=== PATIENT | female | born 1990 | race Caucasian/White ===

== ENCOUNTER → 2021-01-17 09:56 | Outpatient (CLI) | payer OTHER, SELFPAY ==
--- NOTE | ~2021-01-17 | US_ITS ---
EXAMINATION: US OB <= 14 weeks fetus DATE: 01/17/2021 10:20 INDICATION: Miscarriage. Low-grade fever. Evaluate for retained products of conception. Comparison:No prior studies for comparison. TECHNIQUE: Multiple transabdominal sonographic images of the pelvis performed. FINDINGS: The uterus measures 8.5 x 5.3 x 6.5 cm. The endometrial complex measures 1.2 cm. The right ovary measures 3.3 x 1.8 x 3.4 cm and the left ovary measures 2 x 2.6 x 1.2 cm. There are small follicles in each ovary. Normal doppler signal in both ovaries. There is no free fluid in the pelvis. There are no abnormal masses seen on either side. IMPRESSION: 1. Mildly thickened endometrium measuring 12 mm. Reviewed, dictated and finalized at location B.
== END ==
DX: O36.80X0 Pregnancy with inconclusive fetal viability, not applicable or unspecified (principal); Z3A.00 Weeks of gestation of pregnancy not specified
CPT/HCPCS: 76801

== ENCOUNTER → 2021-09-11 11:55 | Outpatient (CLI) | payer BC, SELFPAY ==
--- NOTE | ~2021-09-11 | US_ITS ---
EXAMINATION: US OB <= 14 weeks fetus DATE: 09/11/2021 12:23 INDICATION: Assess viability during first trimester with prior recurrent lo ss TECHNIQUE: Real-time pelvic ultrasound utilizing transabdominal probe was performed. The interprethien barragan radiologist was not present for the study. COMPARISON: None. FINDINGS: The uterus measures 8.4 x 6.4 x 7.0 cm. There is an intrauterine gestational sac. A yolk sac and fet al pole are identified. The crown rump length measures 2.5 cm, which correlates with an estimated ges tational age of 9 weeks and 1 days. heart motion is identified measuring 180 beats per minute ( bpm) by M-mode Doppler. 1.3 x 0.8 x 1.7 similar anechoic subchorionic hematoma along the inferior mar gin of the gestational sac. The right ovary measures 2.9 x 1.9 x 2.5 cm. The left ovary measures 2.5 x 3.3 x 2.6 cm. 2.2 cm corpu s luteum cyst at the left ovary. There is no free fluid in the pelvis. IMPRESSION: 1. Single living fetus with heart rate of 180 bpm. 2. Gestational age by ultrasound of 9 weeks 1 day(s) +/- 6 day(s) with ultrasound estimated date of delivery ([facility]) of 04/15/2022. 2. Small subchorionic hematoma. Reviewed, dictated and finalized at location A. 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 Single living fetus with heart rate of 180 bpm. 2. Gestational age by ultrasound of 9 weeks 1 day(s) +/- 6 day(s) with ultraso und estimated date of delivery ([facility]) of 04/15/2022. 2. Small subchorionic hematoma.
== END ==
PROVIDERS: Visit Provider Obstetrics & Gynecology
DX: O20.9 Hemorrhage in early pregnancy, unspecified (principal); Z3A.01 Less than 8 weeks gestation of pregnancy
CPT/HCPCS: 76801

== ENCOUNTER 2024-01-13 00:38 | Emergency (ER) | payer OTHER, SELFPAY ==
--- NOTE | ~2024-01-13 | XR_ITS ---
EXAMINATION: XR chest 2V DATE: 01/13/2024 01:05 INDICATION: Epigastric abdominal pain. TECHNIQUE: Frontal and lateral views of the chest were obtained. COMPARISON: None. FINDINGS: There is no pneumonia, pleural effusion, or pneumothorax. The heart size is normal. IMPRESSION: 1. No acute cardiopulmonary disease. Reviewed, dictated and finalized at location E.
--- NOTE | 2024-01-13 00:40 | ECG_ITS ---
Measurements Intervals [place] Rate: 72 P: 15 SD: 144 QRS: 28 QRSD: 95 T: 12 QT: 371 QTc: 407 Interpretive Statements SINUS RHYTHM LOW QRS VOLTAGE IN PRECORDIAL LEADS BORDERLINE ECG NO PREVIOUS ECG AVAILABLE FOR COMPARISON Electronically Signed On 01-13-2024 16:01:11 CDT by Josh Kyle D.O.
[2024-01-13 00:42] VITALS: BP 128/86; PULSE 76; RESP 18; TEMP 36.9; O2SAT 100
[2024-01-13 00:57] LABS: Basophils Percent Auto 0.5 % (0.2-1.2); Eosinophils Absolute Auto 0.2 K/mm3 (0-0.3); Eosinophils Percent Auto 2.4 % (0-4.4); Hematocrit 39.9 % (37.0-47.0); Hemoglobin 12.9 g/dL (12.0-15.0); Immature Granulocyte Absolute 0.02 K/mm3 (0.00-0.031); Immature Granulocyte Percent A 0.2 % (0-0.5); Lymphocytes Absolute Auto 1.57 K/mm3 (0.9-3.2); Lymphocytes Percent Auto 18.3 % (18.3-44.2); Mean Corpuscular HGB Conc 32.3 g/dl (32-36); Mean Corpuscular Hemoglobin 27.4 pg (26-34); Mean Corpuscular Volume 84.7 fl (80-100); Mean Platelet Volume 10.7 fl (7.4-10.4); Monocytes Absolute Auto 0.5 K/mm3 (0.1-0.6); Monocytes Percent Auto 5.4 % (2.6-8.5); Neutrophils Absolute Auto 6.3 K/mm3 (1.3-6.7); Neutrophils Percent Auto 73.2 % (45.5-73.1); Platelet Count Result 195 k/mm3 (150-375); Red Blood Count 4.71 M/mm3 (4.2-5.4); Red Cell Distribution Width 13.2 % (11.5-14.5); White Blood Count 8.6 K/mm3 (4.5-10.0)
[2024-01-13 01:07] LABS: Prothrombin Time 13.4 Seconds (11.1-14.7)
[2024-01-13 01:08] LABS: Partial Thromboplastin Time 29.9 Seconds (22.3-36.8)
[2024-01-13 01:10] LABS: Alanine Aminotransferase 45 U/L (6-35); Albumin Level 4.3 g/dL (3.5-5.1); Alkaline Phosphatase 56 U/L (38-126); Anion Gap 4 mmol/L (8-16); Aspartate Amino Transferase 38 U/L (14-36); Bilirubin,Total 0.4 mg/dL (0.2-1.3); Blood Urea Nitrogen 14 mg/dL (7-17); Calcium 8.8 mg/dL (8.4-10.2); Carbon Dioxide 27 mmol/L (22-30); Chloride 106 mmol/L (98-107); Estimated CRCL calculation 94 ml/min; Estimated Glomerular Filt Rate > 60; Glucose 110 mg/dL (65-110); Lipase 70 U/L (23-300); Potassium 3.7 mmol/L (3.4-5.0); Sodium 137 mmol/L (137-145)
[2024-01-13 01:21] LABS: Troponin I < 0.012 ng/mL (0.000-0.034)
[2024-01-13 02:13] VITALS: BP 107/64; PULSE 77; RESP 18; O2SAT 100
[2024-01-13 02:14] VITALS: BP 107/64; PULSE 71; RESP 15; TEMP 36.9; O2SAT 100
[2024-01-13 02:16] VITALS: BP 106/60; PULSE 76; RESP 16; O2SAT 100
--- NOTE | 2024-01-13 02:22 | ED.CHESTPAIN ---
HPI - Chest Pain General Chief Complaint: Chest Pain Stated Complaint: chest pain Time Seen by Provider: 01/13/24 02:21 History of Present Illness HPI narrative: Patient is a 33-year-old female who presents emergency department this evening complaining of mid epigastric pain radiating to her back approximately 3 hours ago. Patient admits that she has had similar symptoms in the past, however, her last similar pain was approximately 5 months ago. Patient admits that the pain is usually at night the few hours after she ate supper. She denies any history of gallstones and denies any previous abdominal surgeries. Patient admits to mild nausea which is intermittent but denies any vomiting episodes. She denies any chest pain, shortness of breath or any lower abdominal pain any urinary symptoms dysuria hematuria and patient agree. Patient also denies any fevers or chills. There are no other modifying alleviating, or precipitating factors at this time. Related Data Allergies Allergy/AdvReac Type Severity Reaction Status Date / Time Penicillins Allergy Hives Verified 01/13/24 00:45 Exam Narrative: General: Alert, awake, afebrile, in no acute distress. HEENT: PERRL, no rhinorrhea, no post nasal drip, oropharynx clear. Neck: Trachea midline, no JVD, no lymphadenopathy. Cardiovascular: Regular rate and rhythm, no murmurs, rubs or gallops, no peripheral edema. Respiratory: Clear to auscultation bilaterally, no tachypnea, no wheezing, no rhonchi, no rubs, no respiratory distress. Abdomen: Soft, nontender, negative Cali sign, nondistended, no rebound, no guarding, no peritoneal signs. Musculoskeletal: No joint swelling or deformity, normal muscle tone. Skin: No rashes or petechia, no signs of infection. Psychiatric: Alert and oriented, normal behavior and judgment for situation. Neurological: Alert and oriented to person, place, and time. Follows all commands. No focal deficits, speech is clear and fluent. Course Vital Signs Vital signs: Vital Signs Temperature 98.5 F 01/13/24 00:42 Pulse Rate 76 01/13/24 00:42 Respiratory Rate 18 01/13/24 00:42 Blood Pressure 128/86 01/13/24 00:42 Pulse Oximetry 100 01/13/24 00:42 Oxygen Delivery Room Air 01/13/24 00:42 Temperature 98.5 F 01/13/24 02:14 Pulse Rate 68 01/13/24 04:03 Respiratory Rate 17 01/13/24 04:03 Blood Pressure 135/93 H 01/13/24 04:03 Pulse Oximetry 99 01/13/24 04:03 Oxygen Delivery Room Air 01/13/24 04:01 MDM - Chest Pain MDM Narrative Medical decision making narrative: The patient was evaluated by myself in the emergency department. History is obtained from patient who is an independent historian and physical exam was performed. External medical records were reviewed at this time. IV was established and pertinent tests were ordered. Patient was administered 4 mg of oral Zofran and for oral Protonix. EKG was obtained which revealed sinus rhythm rate of 72 beats [address] min[address] No ST changes, T wave inversions or evidence of acute ischemia. EKG was independently interpreted by me and is currently pending official cardiology read. Laboratory results obtained revealing mild elevation in her liver enzymes with an AST of 38 and an ALT of 45. At this time, I did inform the patient that ideally I would like to order an ultrasound of her gallbladder, however, coronal time of day, we currently do not have ultrasound in our department. Did discuss obtaining CT abdomen and pelvis with her at this time, however, patient states that she would rather start with an ultrasound 1st. Patient was scheduled for an outpatient ultrasound at 7:30 a.m. her imaging center on January 13. Differential diagnosis considerations include acute cholecystitis, pancreatitis, gastroenteritis and GERD. Comorbidities impacting this visit include none. I have evaluated and discussed social determinants of health with the patient that could potentially impact sub
--- NOTE | 2024-01-13 02:32 | PC.NURSE ---
Pt reports all symptoms resolved not long after arrival. Will hold on meds/IV until provider assessment.
[2024-01-13 03:15] VITALS: PULSE 73; RESP 19; O2SAT 99
[2024-01-13 04:03] VITALS: BP 135/93; PULSE 68; RESP 17; O2SAT 99
[2024-01-13] MEDS: PANTOPRAZOLE 40 MG TABLET PO (04:09)
[2024-01-13] MEDS: ONDANSETRON HCL ODT 4 MG TABLET PO (04:09)
== END 2024-01-13 04:24 | disposition home or self-care (01) ==
PROVIDERS: Emergency Provider Emergency Medicine
DX: R07.9 Chest pain, unspecified (principal)
CPT/HCPCS: 36415; 71046; 80053; 83690; 84484; 85025; 85610; 85730; 93005; 99284; A9270

== ENCOUNTER 2024-01-14 08:13 | Outpatient (CLI) | payer OTHER, SELFPAY ==
--- NOTE | ~2024-01-14 | US_ITS ---
EXAMINATION: US right upper quadrant DATE: 01/14/2024 INDICATION: Epigastric abdominal pain. TECHNIQUE: Multiple grayscale and Doppler ultrasound images of the abdomen were obtained. COMPARISON: None FINDINGS: The visualized portions of the head and body of the pancreas are normal. There is diffuse h epatic steatosis. There is normal flow in main portal vein. The gallbladder is normal in size and con tains gallstones. No gallbladder wall thickening or sonographic Cali sign. The common duct is jonn l and measures 4 mm. IMPRESSION: 1. Diffuse hepatic steatosis. 2. Cholelithiasis. No evidence of acute cholecystitis. Reviewed, dictated and finalized at location A.
== END 2024-01-14 08:14 | disposition home or self-care (01) ==
PROVIDERS: PCP Surgery; Visit Provider Emergency Medicine
DX: K80.20 Calculus of gallbladder without cholecystitis without obstruction (principal); K76.0 Fatty (change of) liver, not elsewhere classified
CPT/HCPCS: 76705

== ENCOUNTER 2024-02-20 12:43 | Emergency (ER) | payer OTHER, SELFPAY ==
--- NOTE | ~2024-02-20 | XR_ITS ---
XR foot RT min 3V 02/20/2024 13:23 INDICATION: Right foot pain PROCEDURE: 4 views right foot COMPARISON: No prior studies for comparison. FINDINGS: Fracture, dislocation or subluxation is not identified. Lisfranc joint intact. The soft tis sues appear within normal limits. No foreign bodies are identified. IMPRESSION: 1: NO ACUTE BONE OR JOINT ABNORMALITY IDENTIFIED. Reviewed, dictated and finalized at location B.
[2024-02-20 13:04] VITALS: BP 94/51; PULSE 89; RESP 16; TEMP 36.6; O2SAT 100
--- NOTE | 2024-02-20 13:49 | ED.LOWEXIN ---
HPI - Extremity Injury (Lower) General Chief Complaint: Extremity Injury, Lower Stated Complaint: Injured Foot Time Seen by Provider: 02/20/24 13:49 Source: patient Mode of arrival: ambulatory Limitations: no limitations History of Present Illness HPI Narrative: 34 yo F presents wtih pain to R foot for 2 wks. Was coming down ladder carrying a bin from storage and couldnt see last step and where to put foot down. Came down hard onto R foot but did not fall. Pain to plantar and dorsal aspect R foot. Has been elevating and resting and still has pain. Wants to rule out fracture. All systems reviewed and negative except as noted above. Related Data Home Medications Medication Instructions Recorded Confirmed fluoxetine 10 mg capsule (Prozac) 10 mg PO DAILY 01/15/24 02/20/24 Allergies Allergy/AdvReac Type Severity Reaction Status Date / Time Penicillins Allergy Hives Verified 02/20/24 13:01 Review of Systems Review of Systems: CONSTITUTIONAL: Denies fever, chills, or sweats. EYES: Denies visual changes, redness, or discharge. ENT: Denies rhinorrhea, congestion, sore throat, or otalgia. CARDIOVASCULAR: Denies chest pain, palpitations, or edema. RESPIRATORY: Denies cough or dyspnea. GASTROINTESTINAL: Denies abdominal pain, nausea, vomiting, or diarrhea. GENITOURINARY: Denies dysuria or hematuria. SKIN: Denies rash or itching. MUSCULOSKELETAL: Denies back pain, joint pain, or myalgia. Reports pain to right foot. NEUROLOGIC: Denies headache, numbness, or weakness. PSYCHIATRIC: Denies anxiety or depression. All other systems reviewed are negative, except as documented in HPI. [facility] Past Medical History Medical History Depression Surgical History Surgical History H/O laparoscopy History of D&C History of eyelid surgery Family History Family History (Updated 01/19/24 @ 08:59 by Elizabeth Lombardi MA) Other Cancer Diabetes mellitus Heart disease Hypertension Social History Social History Smoking status: Never smoker Alcohol intake: current Drinks per week: 1 Alcohol use details: socially Substance use type: marijuana Other substance usage details: Vape marijuana maybe once a week. 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 There is no relevant family history pertinent to the presenting complaint. Exam Narrative: GENERAL: This is a well-nourished, well-developed patient, in no apparent distress. HEAD: normocephalic, atraumatic. EYES: PERRL. Sclera clear/white. Vision is grossly intact. EARS: External ears normal NOSE: External nose normal NECK: Neck supple, non-tender without lymphadenopathy, masses or thyromegaly. CARDIOVASCULAR: Regular rate and rhythm without murmurs, gallops, or rubs. RESPIRATORY: Clear to auscultation. Breath sounds equal bilaterally. No wheezes, rales, or rhonchi. SKIN: warm, Dry, intact with no suspicious lesions or rash, good texture and turgor. NEURO: awake, alert, and oriented to person, place and time. There were no obvious focal neurologic abnormalities. EXTREMITIES: pain to distal aspect 3rd and 4th metatarsal on palpation. no swelling or bruising. no deformity. Course Course Level of Care: Express Care Visit Vital Signs Vital signs: Vital Signs Temperature 36.6 C 02/20/24 13:04 Pulse Rate 89 02/20/24 13:04 Respiratory Rate 16 02/20/24 13:04 Blood Pressure 94/51 L 02/20/24 13:04 Pulse Oximetry 100 02/20/24 13:04 Temperature 36.6 C 02/20/24 13:04 Pulse Rate 89 02/20/24 13:04 Respiratory Rate 16 02/20/24 13:04 Blood Pressure 94/5
== END 2024-02-20 14:04 | disposition home or self-care (01) ==
PROVIDERS: Emergency Provider Nurse Practitioner Family
DX: S90.31XA Contusion of right foot, initial encounter (principal); X50.9XXA Other and unspecified overexertion or strenuous movements or postures, initial encounter; F32.A Depression, unspecified; F12.90 Cannabis use, unspecified, uncomplicated
CPT/HCPCS: 73630; 99213; G0463

== ENCOUNTER 2024-02-23 11:33 | Outpatient (CLI) | payer OTHER, SELFPAY ==
[2024-02-23 12:36] LABS: Alanine Aminotransferase 33 U/L (6-35); Albumin Level 4.5 g/dL (3.5-5.1); Alkaline Phosphatase 54 U/L (38-126); Amylase 69 U/L (30-110); Aspartate Amino Transferase 32 U/L (14-36); Bilirubin,Total 0.4 mg/dL (0.2-1.3); Lipase 69 U/L (23-300)
== END 2024-02-23 11:34 | disposition home or self-care (01) ==
LOC: ANHSURGERY 11:38
PROVIDERS: Visit Provider Surgery
DX: Z01.818 Encounter for other preprocedural examination (principal); K80.10 Calculus of gallbladder with chronic cholecystitis without obstruction
CPT/HCPCS: 36415; 80076; 82150; 83690

== ENCOUNTER 2024-02-25 01:12 | Day surgery (SDC) | payer OTHER, SELFPAY ==
[2024-02-19 09:13] VITALS: BMI 31.4
--- NOTE | 2024-02-19 09:21 | PC.NURSE ---
Report to the Outpatient Waiting Room, entrance under the green pavilion located off [facility], at time _0800_ on date _[id number]_. Planned Procedure Time: _1000_. Time changes happen often and if your time is changed the preop area will call you the afternoon before. - You and your visitor will be asked to self-screen and do not enter if you have any COVID symptoms. - A mask is optional within the hospital at this time. Patients may have clear liquids (water, carbonated beverages, clear teas, apple juice) until 3 hours prior to surgery with a maximum of 20 ounces. - No food from midnight until time of surgery Take the following medications with a SIP of water the morning of surgery: ____Fluoxetine DO NOT STOP ANY OF YOUR OTHER PRESCRIPTION MEDICATIONS PRIOR TO SURGERY ?EXCEPT THE FOLLOWING Medications to discontinue per physician None Date to take last dose Please no make-up, nail bengali, hairspray, perfume, deodorant, or body powder the day of surgery. No jewelry (including any body piercings) or valuables the day of surgery, leave them at home. Please take a shower or bath the night before, or the morning of, surgery with an antibacterial soap. Wear comfortable, loose fitting clothing. - Jewelry must be removed prior to entering the operating room. Rings and piercings that are not removed may be cut off. - The hospital will not accept responsibility for valuables. - Please leave all valuables, including medications, at home the day of surgery. If you are going home after surgery, a licensed jinrikisha driver must drive you home. - NO public transportation without another adult if you receive anesthesia. - We recommend that an adult stay with you for 24 hours following discharge. - We also recommend that you do not drive, make important decision, drink alcoholic beverages, or take any drugs that were not prescribed by your health care provider for at least 24 hours after your discharge time. Follow any additional instructions given to you from your surgeon. If you or anyone in your household have experienced Covid symptoms in the past week, please notify your surgeon or the nurse liaison at the phone number below for possible testing. Telephone instructions given to __Leonor___and asked if any additional questions and then verbalized understanding. Patient advised to call surgeon office or pre surgery nurse liaison [phone] if any additional questions.
--- NOTE | 2024-02-23 16:36 | PM.SD2 ---
Same Day Admit/Disch: HPI History of Present Illness Chief complaint: chronic cholecystitis with calculus Narrative: Leonor Rendon is a 34 year old female who has been experiencing severe right upper quadrant pain after eating. She went to the emergency room with this pain on January 12 of this year. She also has bloating and nausea with these pain episodes. She had an ultrasound that showed gallstones. She was seen in the office and felt to have chronic cholecystitis. She is taken to surgery now for laparoscopic cholecystectomy. [facility] Past Medical History Medical History Depression Surgical History Surgical History H/O laparoscopy History of D&C History of eyelid surgery Family History Family History Other Cancer Diabetes mellitus Heart disease Hypertension Social History Social History Smoking status: Never smoker Alcohol intake: current Drinks per week: 1 Alcohol use details: socially Substance use type: marijuana Other substance usage details: Vape marijuana maybe once a week. 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 Spiritual care concerns: No Same Day Admit/Disch: Med Pre-admit Medications Home Medications Medication Instructions Recorded Confirmed Type fluoxetine 10 mg capsule (Prozac) 10 mg PO DAILY 01/15/24 02/20/24 History Review of Systems Review of Systems All systems reviewed & are unremarkable except as noted in HPI and below (HPI and those items noted below) Constitutional Constitutional: Reports as per HPI, Denies chills and Denies fever(s) Cardiovascular Cardiovascular: Denies chest pain, Denies diaphoresis, Denies dyspnea and Denies paroxysmal nocturnal dyspnea Respiratory Respiratory: Denies chest congestion, Denies cough and Denies dyspnea Gastrointestinal Gastrointestinal: Reports as per HPI, Reports abdominal pain, Reports bloating and Reports nausea Integumentary/Breasts Skin/Breast: Denies lesions and Denies rash Exam Const: General: comfortable, no acute distress, alert and awake HENMT: Head: normocephalic and atraumatic Mouth: Yes Normal oral and palatal mucosa present Eyes: Conjunctivae: conjunctivae normal Pupils: Equal, round and reactive pupils present EOM: EOMs intact bilaterally Neck: Neck: normal visual inspection, no lymphadenopathy and nontender Resp: Effort & Inspection: normal respiratory effort Auscultation: clear to auscultation bilaterally Cardio: Rate: regular rate Rhythm: regular rhythm Heart sounds: no gallops, no murmurs and no rubs GI: Inspection: non-distended GI Palp: Yes Soft to palpation, No Tenderness to palpation present (GI), No Hepatomegaly present and No Splenomegaly present Skin: Lesions: no lesions Rashes: no rashes Neuro: General: no focal motor deficits and CN's II-XI intact bilaterally Cranial nerves: Yes Equal, round and reactive pupils present, Yes Bilaterally intact EOM present, Yes facial symmetry and Yes Midline tongue present Speech: normal speech Motor exam (neuro): 5/5 motor strength present throughout and Motor abnormalities not present Extrem: General: no clubbing, cyanosis or edema and edema Psych: Affect: normal affect Thought process: Normal thought process present Insight: Good insight present (Psych) DS: Summary Time Spent with Patient Time attestation: Total time spent providing and/or coordinating discharge services: DS: Admitting Diagnosis Discharge Date 01/26/2024 Admitting Diagnosis Chronic cholecystitis, cholelithiasis-plan to proceed with laparoscopic cholecystectomy under general anesthesia. I have explained the procedure, benefits, risks, alternatives to the patient. I have d
[2024-02-25] VITALS (7 sets, daily range): BP systolic 107–131; BP diastolic 66–79; PULSE 66–100; RESP 12–17; TEMP 36.1–36.2; O2SAT 99–100; BMI 33.8
[2024-02-25] MEDS: ACETAMINOPHEN 500 MG TABLET 1000 MG PO (08:22)
[2024-02-25] MEDS: SCOPOLAMINE 1 MG PATCH 1 PATCH TRANSDERM (08:22)
[2024-02-25] MEDS: LACTATED RINGERS 1,000 ML 30 ML IV CONT (08:23)
[2024-02-25] MEDS: KETOROLAC 15 MG/ML VIAL (*BKC) IV PUSH (08:26)
--- NOTE | 2024-02-25 08:35 | P.PNAN_ITS ---
Anes - Initial Pre Proc Eval Procedure: Operation Date: 02/25/24 09:30 Proposed Procedures p Laparoscopic Cholecystectomy - Harpreet Hopkins MD Date/Time: 02/25/24 08:35 Surgeon: Harpreet Hopkins MD Pre Op Diagnosis: chronic cholecystitis with calculus Patient Data Age: 34 Gender: F Height: 1.7 m Weight: 98.1 kg Last Vital Signs Temp 97 F L 02/25/24 07:55 Pulse 73 02/25/24 07:55 Resp 16 02/25/24 07:55 BP 107/66 02/25/24 07:55 Pulse Ox 100 02/25/24 07:55 Allergies Allergy/AdvReac Type Severity Reaction Status Date / Time Penicillins Allergy Hives Verified 02/25/24 07:46 Home Medications Medication Instructions Recorded Confirmed Type fluoxetine 10 mg capsule (Prozac) 10 mg PO DAILY 01/15/24 02/20/24 History Patient hx anesthesia problems: post op nausea/vomiting Family hx anesthesia problems: none Results Review: All pre-operative results and documents have been reviewed as part of the pre-operative evaluation. [facility] Past Medical History Medical History Depression Surgical History Surgical History H/O laparoscopy History of D&C History of eyelid surgery Family History Family History Other Cancer Diabetes mellitus Heart disease Hypertension Social History Social History Smoking status: Never smoker Alcohol intake: current Drinks per week: 1 Alcohol use details: socially Substance use type: marijuana Other substance usage details: Vape marijuana maybe once a week. 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 Informed Consent: The patient's anesthetic plan and its attendant risks and benefits were discussed with the patient/family/POA. Questions were solicited and answers provided to the satisfaction of the patient/family/POA.
--- NOTE | 2024-02-25 10:06 | WPDHPUPDATE1 ---
History and Physical Update Update Date/Time: 02/25/24 10:06 History and Physical has been reviewed, including an updated exam of the patient. There are NO changes in the patient's condition. Risks, benefits, and alternatives have been discussed and questions answered. Patient agrees to proceed with procedure.
[2024-02-25] MEDS: ceFAZolin 2 GM/D5W 50 ML 2 GM/50 ML BAG IVPB (10:15)
[2024-02-25] MEDS: BUPIVACAINE/EPINEPHRINE 0.5% 50 ML VIAL 30 ML INFILTRATE (10:21)
--- NOTE | 2024-02-25 11:14 | P.OP_ITS ---
Procedure Note - Detailed Date of Procedure 02/25/24 Pre-op Diagnosis chronic cholecystitis with calculus Post-op Diagnosis Same Procedure Performed Laparoscopic cholecystectomy Surgeon Harpreet Hopkins MD Enterprise Resource Planner Kaylin Cavazos [facility] Anesthesia General and Local Indications Patient has been experiencing episodes of severe right upper quadrant abdominal pain with bloating and nausea. Ultrasound was performed and showed gallstones. Findings Chronic inflammation, fatty liver, no biliary ductal dilatation. Gallbladder wall was thickened. Description of Procedure Patient was taken to surgery and induced into general anesthesia. The abdomen is prepped and draped. Trocars were placed in the usual fashion using [employer] optical trocars and a 5 mm camera. The gallbladder was retracted anterosuperiorly. Some omental adhesions to the gallbladder were carefully taken down with traction and the cautery. We then retracted the gallbladder more fully. Traction was placed on the infundibulum and dissection was carried out in the cholecystohepatic triangle. The cystic artery and cystic duct were very close to 1 another. Each of these was dissected out clearly. The gal lbladder was then dissected off the liver at its lower 3rd. Critical view was achieved. I securely clipped and divided the cystic duct and cystic artery. Gallbladder was then dissected free from its peritoneal attachments to the liver. Gallbladder was placed in an Endo-Catch bag and retrieved from the 10/11 epigastric trocar site. The site had to be slightly enlarged to accommodate the gallbladder with its thickened wall. Once the gallbladder was removed, I replaced the 10 11 trocar and we reviewed the right upper quadrant and gallbladder fossa. The area was irrigated and suctioned. There was no need for additional cautery. All was dry and looked good. I then used the Morgan cone and Morgan-Paras suture pass device. The fascia at the epigastric trocar site was closed with an 0 Vicryl suture. We then evacuated CO2 and removed the trocar sleeves. Skin wounds were closed with subcuticular 4-0 Monocryl skin suture. The wounds were dressed with Exofin surgical adhesive. Patient was awakened and taken to recovery in good condition. Sponge and needle counts were correct x2. Estimated Blood Loss -10 Drains No Packing No Pathology Yes (Gallbladder) Complications No immediate complications Condition Stable Disposition PACU [facility] Billing Surgery - Charge Forward: Surgery Billing (Laparoscopic cholecystectomy)
[2024-02-25] MEDS: fentaNYL CITRATE INJ (*CRX) 100 MCG/2 ML VIAL 25 MCG IV PUSH (12:00)
[2024-02-25] MEDS: oxyCODONE HCL (*CRX) 5 MG TAB IR PO (12:35)
== END 2024-02-25 13:20 | disposition home or self-care (01) ==
PROVIDERS: Visit Provider Surgery
PROC: 0FT44ZZ Resection of Gallbladder, Percutaneous Endoscopic Approach (ICD-10-PCS; CPT 47562; principal; 2024-02-25 09:30)
DX: K80.10 Calculus of gallbladder with chronic cholecystitis without obstruction (principal); F32.A Depression, unspecified; F12.90 Cannabis use, unspecified, uncomplicated; E66.9 Obesity, unspecified; Z68.33 Body mass index [BMI] 33.0-33.9, adult
CPT/HCPCS: 47562; 36415; 80076; 82150; 83690; 88304; A9270; J0330; J0690; J1100; J1885; J2250; J2405; J2704; J3010; J7120

== ENCOUNTER 2025-02-05 05:21 | Emergency (ER) | payer SELFPAY ==
--- OUTSIDE RECORDS SUMMARY | 2025-02-05 05:23 | XMS_ITS | Clinical Summary ---
Author Organization [facility] [address] Address [address] [place] [phone] Care Team Providers Care Budget Engineer Name Role Phone No, Physician Primary Care Provider [phone] Allergies Active Allergy Reactions Criticality Noted Date Comments Penicillins Hives,Urticaria High 05/08/2017 Medications FLUoxetine 10 mg capsule Take 1 tablet/capsu le (10 mg total) by mouth every morning 90 capsule 3 10/01/2024 Active Active Problems Problem Noted Date Diagnosed Date Depression 07/16/2024 Well woman exam with routine gynecological exam 07/16/2024 Assessment & Plan (07/22/2024 2:00 PM CDT): -well-woman examination. Pap smear obtained. -encouraged monthly self-breast examinations. -encouraged to call with any problems questions or follow up in 1 year. Thrombocytopenia affecting 04/04/2022 Disorder of patellofemoral joint 03/22/2019 Epigastric pain 03/22/2019 Muscle weakness 03/22/2019 (spontaneous vaginal delivery) 06/09/2017 Surgical History Surgery Date Site/Laterality Comments CHOLECYSTECTOMY Medical History Medical History Date Comments Depression Social History Tobacco Use Types Packs/Day Years Used Date Smoking Tobacco: Never Tobacco Cessation:Counseling Given: Not Answered Personal Safety Answer Date Recorded Getting School Help Needed Not on file 10/26 Comments No Sex and Gender Information Value Date Recorded Sex Assigned at Not on file Legal Sex Female 12:01 PM MACHINING ASSOCIATE Gender Identity Not on file Sexual Orientation Not on file Obstetrics History Para Term AB IAB SAB Ectopic Multiple Livin g Live Births 5 2 2 3 3 2 2 Date Outcome GA Total Labor Labor/2nd/3rd Weight Sex Type Anes PTL Ene A1 A5 Name Clin 017 Term 40w 3d 7h 19m 3h 30m/3h 46m/0h 03m M Vag-S pont Combin ed Spinal /Epidu ral N Livin g 8 9 RENDON, BOY1L Cassandra Mercer MD Complications:None Delivery Location:[facility] Comments:No observed a nomalies 2019 SAB 4w0 d 08/2020 SAB 6w0 d 12/2020 SAB 8w0 d 022 Term 39w 0d 9h 40m 9h 24m/0h 16m/ 3.21 kg (7 lb 1.2 oz) F Vag-S pont Epidur al Livin g 7 9 RENDON, GIRL1 MELODIE Dey MD Complications:None Delivery Location:[facility] ([facility] ) Last Filed Vital Signs Vital Sign Reading Time Taken Comments Blood Pressure 118/72 07/22/2024 1:03 PM CDT Pulse 75 11/25/2022 12:17 PM MACHINING ASSOCIATE Temperature 36.8 C (98.3 F) 11/25/2022 12:17 PM MACHINING ASSOCIATE Respiratory Rate 18 11/25/2022 12:17 PM MACHINING ASSOCIATE Oxygen Saturation 98% 11/25/2022 12:17 PM MACHINING ASSOCIATE Inhaled Oxygen Concentration - - Weight 87.5 kg (193 lb) 07/22/2024 1:03 PM CDT Height 170.2 cm (5' 7.01 ) 07/22/2024 1:03 PM CD T Body Mass Index 30.22 07/22/2024 1:03 PM CDT Plan of Treatment Health Maintenance Due Date Last Done Comments Depression Screening 1990 Hepatitis C Screening 1990 Varicella Vaccines (1 of 2 - 13+ 2-dose series) 02/16/2001 Hepatitis B Screening 02/16/2006 Covid-19 Vaccine ( season) 2024 07/23/2022, 11/03/2021, 02/11/2021, Additional history exists Influenza Vaccine (#1) 2024 07/23/2022 Cervical Cancer Screening 07/22/2025 07/22/2024 Regular Well Visit/Exam 18-64 07/22/2025 07/22/2024 DTaP/Tdap/Td Vaccine (2 - Td or Tdap) 05/08/2027 05/08/2017 HPV Vaccines Aged Out No longer eligi ble based on patient's age to complete this topic Pneumococcal vaccine <65 Aged Out No longer eligible based on patient's age to complete this topic Procedures Procedure Name Priority Date/Time Associated Diagnosis Comments PAP WITH REFLEX TO HIGH RISK HPV Routine 07/22/2024 1:21 PM CDT Well woman exam with routine gynecological exam from Last 3 Months or Most Recently Relevant to Health Maintenance Results * Pap with reflex to High Risk HPV and Genotyping (Cytology Component) (07/22/2024 1:21 PM CDT) Thin prep (Pap test) 07/22/2024 1:21 PM CDT 07/23/2024 11:08 AM CDT Narrative PATHOLOGY [facility] - 07/28/2024 2:49 PM CDT EPIC results best viewed via link to PDF [address] [address] Tele: Jesika Christian MD - Material Liaison CYTOLOGY REPORT Note to Patients: This report may contain a detailed description of human tissue sent by a health care provider to the laboratory for pathologic evaluation. The content of this report is essential for diagnosis and may provide important critical findings. This information may be unfamiliar to patients to review without a medical professional present. It is advised that the patient review this report in the presence of a health care provider who can answer questions and explain the details. Patient Name: ORION RENDON Address: [address] [place] [address] Gender: F : 1990 (Age: 34) Service: Location: [facility] : [id number] [facility] #: [id number] Patient Type: [facility] SPECIMEN Taken: 07/22/2024 Reported: 07/28/2024 Physician(s): Dr. Maged Dey, M.D. FINAL DIAGNOSIS: SOURCE OF SPECIMEN - ThinPrep Pap w/ reflex HPV: STATEMENT OF ADEQUACY Source: Cervical/Endocervical - Satisfactory for interpretation - Endocervical /Transformation Zone component present - Case screened using computer assisted imaging technology GENERAL CATEGORIZATION: - Negative for intraepithelial lesion or malignancy INTERPRETATION: - Acute Inflammation linno/07/28/2024 14:49Jacey Alford (ASCP) Report Reviewed and Electronically Signed By Jacey Alford (ASCP)Clerical Data Follow A; G0145 CLINICAL DIAGNOSIS AND HISTORY Last Menstrual Period: 07/15/2024 REPORT IMAGES AND/OR SCANNED DOCUMENTS ONLY VIEWABLE IN PDF FORMAT The Pap test is a screening test used to aid in the detection of cervical cancer and its precursors. It should not be the sole means by which malignant and premalignant lesions are diagnosed. Both false negative and false positive results may occur. It also has poor sensitivity for the detection of endometrial lesions and should not be used to evaluate suspected endometrial abnormalities. For these reasons it is most important to obtain Pap tests at regular intervals, as recommended by your physician or nurse practitioner. Maged Dey MD LAB CYTOLOGY ORDERABLES Nevaeh maya Result PATHOLOGY [facility] Laboratory Receiving [address] [place] [address] from Last 3 Months or Most Recently Relevant to Health Maintenance Insurance [facility] HMO Care Teams Budget Engineer Relationship Specialty Start Date End Date No, Physician PCP - General 11/25/22
--- OUTSIDE RECORDS SUMMARY | 2025-02-05 05:23 | XMS_ITS | Clinical Summary ---
Author Organization [facility] Address [address] [place] [address] Care Team Providers Care It Engineer Name Role Phone Maged Dey MD Primary Care Provider [phone] Source Comments [facility],non-owned Affiliates and Associated Physician Practices is amultiple site organization consisting of ambulatory clinics and hospital sitesin [place], [place], [place] and [place]. This disclosure is being madepursuant to the Care Everywhere program and may not contain all information available regarding this patient. Last updated 18.[facility] Allergies Active Allergy Reactions Criticality Noted Date Comments Penicillins Urticaria Medium 05/08/2017 Medications * Be aware that medications may not be up to date on this document. Alwaysverify current medications with the patient. ibuprofen (MOTRIN) 600 MG tablet Take 1 tablet by mouth every 6 hours as needed for Pain 30 tablet 1 0 Active HYDROcodone-acet aminophen (NORCO) 5-325 MG tablet Take 1 tablet by mouth every 6 hours as needed for Pain 12 tablet 0 Active Additional Information Patient not taking.Reported on 05/29/2021 FLUoxetine (PROZAC) 10 MG tablet Take 10 mg by mouth once daily Active progesterone 100 mg 100 mg tablet Take 100 mg by mouth at bedtime Active azithromycin (ZITHROMAX) 250 MG tabletIndication s:Acute sinusitis, recurrence not specified, unspecified location,Acute otitis media, unspecified otitis media type Take 2 tabs today, then 1 tab daily for next 4 days 6 tablet 1 Active albuterol HFA (PROVENTIL; VENTOLIN; PROAIR) 108 (90 Base) MCG/ACT inhalerIndicatio ns:Acute bronchitis, unspecified organism Inhale 2 (two) puffs by mouth every 6 hours as needed for Wheezing or Cough 1 g Active Active Problems Problem Noted Date Diagnosed Date Disorder of patellofemoral joint 03/22/2019 Epigastric pain 03/22/2019 Muscle weakness 03/22/2019 (spontaneous vaginal delivery) 06/09/2017 Immunizations Immunization Administration Dates Next Due TDAP (7yrs+) 05/08/2017 Family History Medical History Relation Name Comments Diabetes - Type 2 Father Diabetes - Type 2 Mother Asthma Neg Hx Autoimmune Disease Neg Hx Bipolar Disorder Neg Hx Cancer - Breast Neg Hx Cancer - Colon Neg Hx Cancer - Other Neg Hx Cancer - Ovarian Neg Hx Cancer - Pancreatic Neg Hx Cancer - Prostate Neg Hx Depression Neg Hx Eczema Neg Hx Hypertension Neg Hx Migraine Neg Hx Osteoporosis Neg Hx Seizures Neg Hx Sudd. <30 Neg Hx Thyroid Disease Neg Hx Ulcerative Colitis Neg Hx Relation Name Status Comments Father Alive Mother Alive Social History Tobacco Use Types Packs/Day Years Used Date Smoking Tobacco: Never Smokeless Tobacco: Never Tobacco Cessation:Counseling Given: No Alcohol Use Standard Drinks/Week Comments No 0 (1 standard drink = 0.6 oz pur e alcohol) Comments No Sex and Gender Information Value Date Recorded Sex Assigned at Not on file Legal Sex Female 6:38 PM CDT Gender Identity Not on file Sexual Orientation Not on file Last Filed Vital Signs Vital Sign Reading Time Taken Comments Blood Pressure 104/62 09/14/2021 4:01 PM HEALTH CLUB ATTENDANT Pulse 84 09/14/2021 4:01 PM HEALTH CLUB ATTENDANT Temperature 36.7 C (98 F) 09/14/2021 4:01 PM HEALTH CLUB ATTENDANT Respiratory Rate 17 09/14/2021 4:01 PM HEALTH CLUB ATTENDANT Oxygen Saturation 99% 09/14/2021 4:01 PM HEALTH CLUB ATTENDANT Inhaled Oxygen Concentration - - Weight 86.2 kg (190 lb) 09/14/2021 4:01 PM HEALTH CLUB ATTENDANT Height 170.2 cm (5' 7 ) 09/14/2021 4:01 PM HEALTH CLUB ATTENDANT Body Mass Index 29.76 09/14/2021 4:01 PM HEALTH CLUB ATTENDANT Plan of Treatment Health Maintenance Due Date Last Done Comments PAP SMEAR 1990 HIV SCREENING 02/16/2003 HEPATITIS C SCREENING 02/12/2006 HEPATITIS B VACCINE (1 of 3 - 19+ 3-dose series) 02/16/2007 COVID-19 VACCINE (3 - 2023-2 5 season) 2024 02/11/2021, 01/20/2021 DEPRESSION SCREENING 10/20/2024 INFLUENZA VACCINE (Season Ended) 2025 DTAP/TDAP/TD VACCINES (2 - T d or Tdap) 05/08/2027 05/08/2017 ZOSTER VACCINE (1 of 2) 02/16/2038 HIB VACCINE Aged Out No longer eligi ble based on patient's age to complete this topic HPV VACCINE Aged Out No longer eligi ble based on patient's age to complete this topic MENINGOCOCCAL (Group B) VACCINE SHARED DECISION-MAKING Aged Out No longer eligible based on patient's age to complete this topic MENINGOCOCCAL GROUPS A/C/Y/W VACCINE Aged Out No longer eligible b ased on patient's age to complete this topic PNEUMOCOCCAL VACCINE Aged Out No long er eligible based on patient's age to complete this topic Insurance * Guarantor: ORION RENDON Account Type Relation to Patient Date of Phone Billing Address Personal/Family [address] [place], [place] [phone] [employer] SELF PAY NO INSURANCE Member Subscriber Plan / Payer (Ef fective for All Dates) Name:Orion Rendon Member ID:Not on file Relation to Subscriber:Not on file Name:ORION RENDON Subscriber ID:Not on file Address: [address] [place] [phone] Payer ID:Not on file Group ID:Not on file Type:Self Pay Address: [place], [place] * Guarantor: ORION RENDON Account Type Relation to Patient Date of Phone Billing Address Personal/Family [address] [place], [place] [phone] [employer] SELF PAY NO INSURANCE Member Subscriber Plan / Payer (Ef fective for All Dates) Name:RendonHerson simonen Member ID:Not on file Relation to Subscriber:Not on file Name:RENDONHERSON SimonEN Subscriber ID:Not on file Address: [address] [place] [address] Payer ID:Not on file Group ID:Not on file Type:Self Pay Address: [place], [place] * Guarantor: ORION RENDON Account Type Relation to Patient Date of Phone Billing Address Personal/Family [address] [place] [address] [employer] SELF PAY NO INSURANCE Member Subscriber Plan / Payer (Ef fective for All Dates) Name:Orion Rendon Member ID:Not on file Relation to Subscriber:Not on file Name:ORION RENDON Subscriber ID:Not on file Address: [address] [place] [address] Payer ID:Not on file Group ID:Not on file Type:Self Pay Address: [place], [place] Care Teams It Engineer Relationship Specialty Start Date End Date Maged Dey MD PCP - General Obstetrics and Gynecology 08/25/20
--- OUTSIDE RECORDS SUMMARY | 2025-02-05 05:23 | XMS_ITS | Referral Summary ---
Author Organization [facility] [address] Address [address] [place] [phone] Care Team Providers Care Orientor Name Role Phone No, Physician Primary Care Provider [phone] Allergies Active Allergy Reactions Criticality Noted Date [...] Muscle weakness 03/22/2019 (spontaneous vaginal delivery) 06/09/2017 Social History Tobacco Use Types Packs/Day Years Used Date Smoking Tobacco: Never Tobacco Cessation:Counseling Given: Not Answered Personal Safety Answer Date Recorded Getting School Help Needed Not on file 10/26 Comments No Sex and Gender Information Value Date Recorded Sex Assigned at Not on file Legal Sex Female 12:01 PM WEIGHT CLERK Gender Identity Not on file Sexual Orientation Not on file Last Filed Vital Signs Vital Sign Reading Time Taken Comments Blood Pressure 118/72 07/22/2024 1:03 PM CDT Pulse 75 11/25/2022 12:17 PM WEIGHT CLERK Temperature 36.8 C (98.3 F) 11/25/2022 12:17 PM WEIGHT CLERK Respiratory Rate 18 11/25/2022 12:17 PM WEIGHT CLERK Oxygen Saturation 98% 11/25/2022 12:17 PM WEIGHT CLERK Inhaled Oxygen Concentration - - Weight 87.5 kg (193 lb) 07/22/2024 1:03 PM CDT Height 170.2 cm (5' 7.01 ) 07/22/2024 1:03 PM CD T Body Mass Index 30.22 07/22/2024 1:03 PM CDT Plan of Treatment Not on file Procedures Procedure Name Priority Date/Time Associated Diagnosis [...] CDT 07/23/2024 11:08 AM CDT Narrative PATHOLOGY [facility] - 07/28/2024 2:49 PM CDT EPIC results best viewed via link to PDF [address] [address] Tele: Jesika Christian MD - Generation Engineer CYTOLOGY REPORT Note to Patients: This report [...] questions and explain the details. Patient Name: JENNIFER RENDON Address: [address] [place] [address] Gender: F : 1990 (Age: 34) Service: Location: N : [id number] [facility] #: [id number] Patient Type: [facility] SPECIMEN Taken: 07/22/2024 Reported: 07/28/2024 Physician(s): Dr. Maged Dey M.D. FINAL DIAGNOSIS: SOURCE OF SPECIMEN - ThinPrep Pap w/ reflex HPV: STATEMENT OF ADEQUACY Source: Cervical/Endocervical - Satisfactory for interpretation - Endocervical /Transformation Zone component present - Case screened using computer assisted imaging technology GENERAL CATEGORIZATION: - Negative for intraepithelial lesion or malignancy INTERPRETATION: - Acute Inflammation lewo/07/28/2024 14:49Jacey Alford (ASCP) Report Reviewed and Electronically [...] LAB CYTOLOGY ORDERABLES Nevaeh maya Result PATHOLOGY [facility] Laboratory Receiving [address] [place], [place] [phone] from Last 3 Months or Most Recently Relevant to Health Maintenance Insurance [place] [facility] Care Teams Orientor Relationship Specialty Start Date End Date No, Physician PCP - General 11/25/22
--- OUTSIDE RECORDS SUMMARY | 2025-02-05 05:23 | XMS_ITS | Clinical Summary ---
Author Organization [facility] Address [address] [place] [phone] Phone Care Team Providers Care Community Case Manager Name Role Phone Unavailable Primary Care Provider Unavailabl e Allergies Active Allergy Reactions Criticality Noted Date Comments Penicillins Hives High 06/08/2017 Medications vit-iron fumarate-fa (KEVIN ) 28 mg iron- 800 mcg Tablet Take 1 Tablet by mouth daily. Active FLUoxetine (PROzac) 10 mg capsule Take 10 mg by mouth daily. Active ferrous sulfate 134 mg (27 mg iron) Tablet Take 134 mg by mouth. Active FLUoxetine (PROzac) 10 mg tablet Take 10 mg by mouth daily. Active albuterol sulfate 90 mcg/Actuation inhaler Take 2 Puffs by inhalation every 6 hours as needed. 1 Active ibuprofen (MOTRIN) 600 mg tablet Take 1 Tablet (600 mg) by mouth every 6 hours as needed for Pain, Mild. 30 Tablet 1 2 Active Active Problems Problem Noted Date Diagnosed Date Thrombocytopenia affecting 04/04/2022 (spontaneous vaginal delivery) 06/09/2017 Resolved Problems Problem Noted Date Diagnosed Date Resolved Date Normal labor 06/08/2017 06/09/2017 Immunizations Immunization Administration Dates Next Due (ADACEL/BOOSTRIX)(10 YR UP) TDAP VACCINE, 0.5ML, IM 05/08/2017 Family History Medical History Relation Name Comments Diabetes Father Diabetes Mother Relation Name Status Comments Father Alive Mother Alive Social History Tobacco Use Types Packs/Day Years Used Date Smoking Tobacco: Never Smokeless Tobacco: Never Alcohol Use Standard Drinks/Week Comments No 0 (1 standard drink = 0.6 oz pur e alcohol) Comments No Sex and Gender Information Value Date Recorded Sex Assigned at Not on file Legal Sex Female 5:12 PM CDT Gender Identity Not on file Sexual Orientation Not on file Last Filed Vital Signs Vital Sign Reading Time Taken Comments Blood Pressure 124/77 04/09/2022 7:20 AM CDT Pulse 110 01/26/2021 9:59 AM CDT Temperature 36.6 C (97.8 F) 04/09/2022 7:20 AM CDT Respiratory Rate 18 04/09/2022 7:20 AM CDT Oxygen Saturation 100% 04/08/2022 8:56 AM CDT Inhaled Oxygen Concentration - - Weight 98.4 kg (217 lb) 04/07/2022 11:12 AM CDT Height 170.2 cm (5' 7 ) 04/07/2022 11:12 AM CDT Body Mass Index 33.99 04/07/2022 11:12 AM CDT Plan of Treatment Health Maintenance Due Date Last Done Comments HEPATITIS B VACCINES (1 of 3 - 19+ 3-dose series) 02/16/2007 HPV/Cotest (21-29) 02/16/2009 PAP SMEAR 02/16/2009 CERVICAL CANCER SCREENING 02/16/2018 HPV/Cotest (30-65) 02/16/2018 PAP SMEAR 02/16/2018 INFLUENZA VACCINE (#1) 2024 DTAP/TDAP/TD VACCINES (2 - T d or Tdap) 05/08/2027 05/08/2017 HPV VACCINES Aged Out No longer eligi ble based on patient's age to complete this topic PNEUMOCOCCAL VACCINE 0-49 YEARS Aged Out No longer eligible based on patient's age to complete this topic Insurance [employer] Commercial Advance Directives For more information, please contact: [phone] * Full Code (Latest Code Status on File) Date Activated Date Inactivated Comments 04/08/2022 12:56 AM 04/09/2022 4:50 PM * Full Code Date Activated Date Inactivated Comments 04/07/2022 12:35 PM 04/08/2022 12:56 AM * Full Code Date Activated Date Inactivated Comments 04/07/2022 12:34 PM 04/07/2022 12:35 PM * Full Code Date Activated Date Inactivated Comments 04/04/2022 7:16 PM 04/05/2022 12:01 PM * Full Code Date Activated Date Inactivated Comments 06/09/2017 1:53 AM 06/11/2017 1:42 PM
[2025-02-05 05:27] VITALS: BP 105/64; PULSE 78; RESP 14; TEMP 36.5; O2SAT 100
--- OUTSIDE RECORDS SUMMARY | 2025-02-05 05:48 | XMS_ITS | Referral Summary ---
Author Organization [facility] [address] Address [address] [place] [phone] Care Team Providers Care Bead Trimmer Name Role Phone No, Physician Primary Care Provider [phone] Allergies Active Allergy Reactions Criticality Noted Date [...] on file Legal Sex Female 12:01 PM LITHOPRESS OPERATOR Gender Identity Not on file Sexual Orientation Not on file Last Filed Vital Signs Vital Sign Reading Time Taken Comments Blood Pressure 118/72 07/22/2024 1:03 PM CDT Pulse 75 11/25/2022 12:17 PM LITHOPRESS OPERATOR Temperature 36.8 C (98.3 F) 11/25/2022 12:17 PM LITHOPRESS OPERATOR Respiratory Rate 18 11/25/2022 12:17 PM LITHOPRESS OPERATOR Oxygen Saturation 98% 11/25/2022 12:17 PM LITHOPRESS OPERATOR Inhaled Oxygen Concentration - - Weight 87.5 [...] CDT 07/23/2024 11:08 AM CDT Narrative PATHOLOGY [facility] - 07/28/2024 2:49 PM CDT EPIC results best viewed via link to PDF [address] [address] Tele: Jesika Christian MD - Tailor Helper CYTOLOGY REPORT Note to Patients: This report [...] the details. Patient Name: JENNIFER RENDON Address: [address] [place] [address] Gender: F : 1990 (Age: 34) Service: Location: N : [id number] [facility] #: [id number] Patient Type: [facility] [place] Taken: 07/22/2024 Reported: 07/28/2024 Physician(s): Dr. [...] LAB CYTOLOGY ORDERABLES Nevaeh maya Result PATHOLOGY [facility] Laboratory Receiving [address] [place], [place] [phone] from Last 3 Months or Most Recently Relevant to Health Maintenance Insurance [employer] [place] [facility] Care Teams Bead Trimmer Relationship Specialty Start Date End Date No, Physician PCP - General 11/25/22
--- OUTSIDE RECORDS SUMMARY | 2025-02-05 05:48 | XMS_ITS | Clinical Summary ---
Author Organization [facility] [address] Address [address] [place] [phone] Care Team Providers Care Mercury Washer Name Role Phone No, Physician Primary Care Provider [phone] Allergies Active Allergy Reactions Criticality Noted Date [...] on file Legal Sex Female 12:01 PM PHARMACOVIGILANCE SAFETY EXPERT Gender Identity Not on file Sexual Orientation [...] BOY1L Cassandra Mercer MD Complications:None Delivery Location:[facility] Comments:No observed a nomalies 2019 SAB 4w0 d 08/2020 SAB 6w0 d 12/2020 SAB 8w0 d 022 Term 39w 0d 9h 40m 9h 24m/0h 16m/ 3.21 kg (7 lb 1.2 oz) F Vag-S pont Epidur al Livin g 7 9 RENDON, GIRL1 MELODIE Dey MD Complications:None Delivery Location:[facility] ([facility] ) Last Filed Vital Signs Vital Sign Reading Time Taken Comments Blood Pressure 118/72 07/22/2024 1:03 PM CDT Pulse 75 11/25/2022 12:17 PM PHARMACOVIGILANCE SAFETY EXPERT Temperature 36.8 C (98.3 F) 11/25/2022 12:17 PM PHARMACOVIGILANCE SAFETY EXPERT Respiratory Rate 18 11/25/2022 12:17 PM PHARMACOVIGILANCE SAFETY EXPERT Oxygen Saturation 98% 11/25/2022 12:17 PM PHARMACOVIGILANCE SAFETY EXPERT Inhaled Oxygen Concentration - - Weight 87.5 [...] CDT 07/23/2024 11:08 AM CDT Narrative PATHOLOGY [facility] - 07/28/2024 2:49 PM CDT EPIC results best viewed via link to PDF [address] [address] Tele: Jesika Christian MD - Machine Bander And Cellophaner CYTOLOGY REPORT Note to Patients: This report [...] the details. Patient Name: ORION RENDON Address: [address] [place] [address] Gender: F : 1990 (Age: 34) Service: Location: [facility] : [id number] [facility] #: [id number] Patient Type: [facility] SPECIMEN Taken: 07/22/2024 Reported: 07/28/2024 Physician(s): Dr. Maged Dey, M.D. FINAL DIAGNOSIS: SOURCE OF SPECIMEN - ThinPrep Pap w/ reflex HPV: STATEMENT OF ADEQUACY Source: Cervical/Endocervical - Satisfactory for interpretation - Endocervical /Transformation Zone component present - Case screened using computer assisted imaging technology GENERAL CATEGORIZATION: - Negative for intraepithelial lesion or malignancy INTERPRETATION: - Acute Inflammation ilnno/07/28/2024 14:49Jacey Alford (ASCP) Report Reviewed and Electronically [...] LAB CYTOLOGY ORDERABLES Nevaeh maya Result PATHOLOGY [facility] Laboratory Receiving [address] [place] [address] from Last 3 Months or Most Recently Relevant to Health Maintenance Insurance [facility] HMO Care Teams Mercury Washer Relationship Specialty Start Date End Date No, Physician PCP - General 11/25/22
--- OUTSIDE RECORDS SUMMARY | 2025-02-05 05:48 | XMS_ITS | Clinical Summary ---
Author Organization [facility] [employer] Address [address] [place] [address] Care Team Providers Care Field Service Engineer Name Role Phone Maged Dey MD Primary Care Provider [phone] Source Comments [facility] [employer],non-owned Affiliates and Associated Physician Practices is amultiple site organization consisting of ambulatory clinics and hospital sitesin [place], [place], [place] and [place]. This disclosure is being madepursuant to the Care Everywhere program and may not contain all information available regarding this patient. Last updated 18.[facility] [employer] Allergies Active Allergy Reactions Criticality Noted Date [...] Comments Blood Pressure 104/62 09/14/2021 4:01 PM [employer] Pulse 84 09/14/2021 4:01 PM [employer] Temperature 36.7 C (98 F) 09/14/2021 4:01 PM [employer] Respiratory Rate 17 09/14/2021 4:01 PM [employer] Oxygen Saturation 99% 09/14/2021 4:01 PM [employer] Inhaled Oxygen Concentration - - Weight 86.2 kg (190 lb) 09/14/2021 4:01 PM [employer] Height 170.2 cm (5' 7 ) 09/14/2021 4:01 PM [employer] Body Mass Index 29.76 09/14/2021 4:01 PM [employer] Plan of Treatment Health Maintenance Due Date [...] Patient Date of Phone Billing Address Personal/Family [address] [place], [place] [id number] [employer] SELF PA[employer] NO INSURANCE Member Subscriber Plan / Payer (Ef fective for All Dates) Name:Orion Rendon Member ID:Not on file Relation to Subscriber:Not on file Name:ORION RENDON Subscriber ID:Not on file Address: [address] [place] [id number] Payer ID:Not on file Group ID:Not on file Type:Self Pay Address: [place], [place] * Guarantor: ORION RENDON Account Type Relation to Patient Date of Phone Billing Address Personal/Family [address] [place], [place] [id number] [employer] SELF PAY NO INSURANCE Member Subscriber Plan / Payer (Ef fective for All Dates) Name:RendonHerson simonen Member ID:Not on file Relation to Subscriber:Not on file Name:RENDONHERSON SimonEN Subscriber ID:Not on file Address: [address] [place] [address] Payer ID:Not on file Group ID:Not on file Type:Self Pay Address: [place], [place] * Guarantor: ORION RENDON Account Type Relation to Patient Date of Phone Billing Address Personal/Family [address] [place] [address] [employer] SELF PA[employer] NO INSURANCE Member Subscriber Plan / Payer (Ef fective for All Dates) Name:Orion Rendon Member ID:Not on file Relation to Subscriber:Not on file Name:ORION RENDON Subscriber ID:Not on file Address: [address] [place] [address] Payer ID:Not on file Group ID:Not on file Type:Self Pay Address: [place], [place] Care Teams Field Service Engineer Relationship Specialty Start Date End Date Maged Dey MD PCP - General Obstetrics and Gynecology 08/25/20
--- OUTSIDE RECORDS SUMMARY | 2025-02-05 05:48 | XMS_ITS | Clinical Summary ---
Author Organization [facility] Address [address] [place] [id number] Phone Care Team Providers Care Jumpbasting Canvas Baster Name Role Phone Unavailable Primary Care Provider [...] Advance Directives For more information, please contact: [phone] * Full Code (Latest Code Status on [...]
--- NOTE | 2025-02-05 05:56 | ED_ITS ---
HPI - General Adult General Chief complaint: Extremity Injury, Lower Stated complaint: gash on the bottom of right foot Time Seen by Provider: 02/05/25 05:30 History of Present Illness HPI narrative: Patient is a 34-year-old female who presents emergency department this evening status post a laceration to the bottom of her right foot. Patient states that she stepped on a Flovent that was propped up and lacerated the bottom of her right foot right under her right pinky toe. Bleeding currently controlled. Patient states that her tetanus is up-to-date. Denies any additional symptoms or concerns at this time. Related Data Home Medications ?Medication ?Instructions ?Recorded ?Confirmed ?Last Taken ?Type fluoxetine 10 mg capsule (Prozac) 10 mg PO DAILY 01/15/24 03/24/24 02/25/24 History Allergies Allergy/AdvReac Type Severity Reaction Status Date / Time Penicillins Allergy Hives Verified 03/18/24 10:58 Review of Systems Review of Systems: All systems are reviewed and are negative unless stated otherwise in the HPI. [facility] Past Medical History Medical History Depression Surgical History Surgical History History of laparoscopic cholecystectomy 02/25/24 History of eyelid surgery H/O laparoscopy History of D&C Family History Family History Other Cancer Diabetes mellitus Heart disease Hypertension Social History Social History Smoking status: Never smoker Alcohol intake: current Drinks per week: 1 Alcohol use details: socially Substance use type: marijuana Other substance usage details: Vape marijuana maybe once a week. 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 HEENT: PERRL, no rhinorrhea, no post nasal drip, oropharynx clear. Neck: Trachea midline, no JVD, no lymphadenopathy. Cardiovascular: Regular rate and rhythm, no murmurs, rubs or gallops, no peripheral edema. Respiratory: Clear to auscultation bilaterally, no tachypnea, no wheezing, no rhonchi, no rubs, no respiratory distress. Abdomen: Soft, nontender, nondistended, no rebound, no guarding, no peritoneal signs. Musculoskeletal: No joint swelling or deformity, normal muscle tone. Skin: 4 cm linear laceration to the plantar aspect of the right foot right below the right pinky, no active bleeding. Psychiatric: Alert and oriented, normal behavior and judgment for situation. Neurological: Alert and oriented to person, place, and time. Follows all commands. No focal deficits, speech is clear and fluent. Course Vital Signs Vital signs: Vital Signs Temperature 97.7 F 02/05/25 05:27 Pulse Rate 78 02/05/25 05:27 Respiratory Rate 14 02/05/25 05:27 Blood Pressure 105/64 02/05/25 05:27 Pulse Oximetry 100 02/05/25 05:27 Temperature 97.7 F 02/05/25 05:27 Pulse Rate 78 02/05/25 05:27 Respiratory Rate 14 02/05/25 05:27 Blood Pressure 105/64 02/05/25 05:27 Pulse Oximetry 100 02/05/25 05:27 Procedures Laceration Laceration 1: Date: 02/05/25 Time: 05:57 Site: lower extremity Side (If applicable): right Size (cm): 4 Description: linear Depth: simple, single layer Local Anesthetic: lidocaine 1% Amount of anesthesia used (mL): 3 Pre-repair: wound explored, irrigated and deep structures intact ====== Skin Level ====== Skin layer closed with: nylon Size (cm): 4-0 Number of sutures: 4 Technique: simple, interrupted ====== Subcutaneous Layer ====== ====== Muscle Layer ====== ====== Tendon Layer ====== Medical Decision Making MDM Narrative Medical decision making narrative: The patient was evaluated by myself in the emergency department. History is obtained from patient who is an independent historian and physical exam was p erformed. External medical records were reviewed at this time. Differential diagnosis considerations include lacerations, abrasions. Comorbidities impacting this visit include none. I have evaluated and discussed social determinants of health with the patient that could potentially impact subsequent diagnosis and treatment plans. On repeat assessment of the patient, reevaluation revealed that the patient is doing well and is in no acute distress. Patient symptoms have improved since she arrived to our emergency department. Repeat vital signs were all reviewed and noted to be stable. Differential diagnosis and treatment plan were discussed with the patient at bedside. Patient agrees with discussion and after shared medical decision making agrees with discharge. All questions were answered to the patient's satisfaction. Patient will follow up with her PCP in the next week. She was informed that the 4 sutures that were placed today will need to be removed by medical professional within the next 7-10 days and patient is in agreement.. Patient was provided with strict return precautions and instructed to return to the emergency department if any new or worsening symptoms develop. The patient was discharged in stable condition. Vital Signs Vital Signs: Vital Signs Temperature 97.7 F 02/05/25 05:27 Pulse Rate 78 02/05/25 05:27 Respiratory Rate 14 02/05/25 05:27 Blood Pressure 105/64 02/05/25 05:27 Pulse Oximetry 100 02/05/25 05:27 Temperature 97.7 F 02/05/25 05:27 Pulse Rate 78 02/05/25 05:27 Respiratory Rate 14 02/05/25 05:27 Blood Pressure 105/64 02/05/25 05:27 Pulse Oximetry 100 02/05/25 05:27 Discharge Plan Discharge Clinical Impression: Foot laceration Patient Disposition: Home Condition: Improved Instructions: Antibiotic Form, Laceration (DC) Additional Instructions: Please follow-up with your family doctor within the next week. The 4 sutures that were placed today will need to be removed by medical professional within the next 7-10 days. Keep the area clean and dry. Patient Language: Serbian Prescriptions: No Action fluoxetine [Prozac] 10 mg capsule 10 mg PO DAILY Follow-up/Referrals: Denny Booker MD [Physician] - 1 Week PHYSICIAN,SHEET MANAGER [Primary Care Provider] - Time of Disposition: 05:57
[2025-02-05 06:36] VITALS: BP 102/70; PULSE 70; RESP 16; O2SAT 100
== END 2025-02-05 06:42 | disposition home or self-care (01) ==
PROVIDERS: Emergency Provider Emergency Medicine
DX: S91.311A Laceration without foreign body, right foot, initial encounter (principal); W22.8XXA Striking against or struck by other objects, initial encounter; F32.A Depression, unspecified
CPT/HCPCS: 12002; 99282